=== PATIENT | female | born 1965 | race Caucasian/White ===

== ENCOUNTER 2016-06-01 05:05 | Emergency (ER) | payer OTHER ==
[2016-06-01] MEDS ORDERED: DIPH,PERTUSS,TET(ADACEL) VAC/PF 0.5 ML (Tdap) IM ONE (05:13)
[2016-06-01] MEDS ORDERED: Lidocaine 1% 10 MG/ML - 20 ML VIAL SUBCUT ONE ×2 (05:20→05:21)
[2016-06-01 05:50] VITALS: RESP 16; TEMP 98.1
--- NOTE | 2016-06-01 05:56 | PDOC ---
Hand / Wrist Injury HPI - General Chief Complaint: Laceration / Wound Stated Complaint: Right First Digit Laceration Date Seen by Provider: 06/01/16 Time Seen by Provider: 05:10 Source: POSITIVE: Patient Exam Limitations: POSITIVE: No limitations Nurse's Notes Reviewed & Considered: Yes - History of Present Illness Initial Comments: The patient is a 50-year-old female. 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 She accidentally sliced into the radial and distal aspect of the right thumb about 30 minutes [employer]. Tetanus vaccination status is not current and patient was given a Tdap vaccination in the emergency room today. No sensory or motor deficits. Wound has bled briskly. Have you received a tetanus shot in the past 10 years?: No Body Location Affected: REPORTS: Upper Extremity (R) (Thumb) Timing: REPORTS: Abrupt Duration: 1/2 hour Severity: Moderate Location at Time of Onset: REPORTS: Work Context: REPORTS: Laceration Location of Injury: REPORTS: Right, 1st Finger Quality: REPORTS: "Pain" (Localized pain at site of injury) Modifying Factors: REPORTS: Nothing Exacerbates Associated Symptoms: DENIES: Arm (R), Arm (L), Tingling Distally, Numbness Distally, Loss of Feeling, Loss of Power, Other Any Prior Injuries Related to Current Complaint?: No - Patient Home Medications Home Medications: Home Medications NK [No Home Medications Reported] 06/01/16 - Patient Allergies Allergies/Adverse Reactions: Allergies Allergy/AdvReac Type Severity Reaction Status Date / Time codeine [Codeine] Allergy HIVES Verified 06/01/16 05:12 Past Medical History - heen HEENT History: Denies History Cardiovascular History: Denies History Respiratory History: Denies History Gastrointestinal History: Other (please comment) Additional Gastrointestinal History: Hx of cholecystectomy. Genitourinary History: Denies History Endocrine History: Denies History Musculoskeletal History: Other (please comment) Additional Musculoskeletal History: Hx of shoulder repair. Neurological History: Denies History Blood Disorders: Denies History Psychiatric History: Denies History Female Reproductive History: Other (please comment) Additional Female Reproductive History: Hx of partial hysterectomy. In Past Year Been Physically Harmed or Verbally Threatened: No History of MDRO: No Tobacco Use: Current Every Day Smoker Alcohol Use: Rarely Substance Use Type: None Past Medical History Reviewed: Reviewed - No Changes ROS - Limitations ROS Limitations: No Limitations Constitution: REPORTS: Denies Symptoms Cardiovascular: REPORTS: Denies Cardiac Symptoms Respiratory: REPORTS: Denies Resp Symptoms Neurological: REPORTS: Denies Neuro Symptoms Gastrointestinal: REPORTS: Denies GI Symptoms Endocrine: REPORTS: Denies Symptoms Musculoskeletal: REPORTS: Recent Injury (As above) Genitourinary: REPORTS: Denies Symptoms Eyes: REPORTS: Denies Symptoms ENT: REPORTS: Denies Symptoms Skin: REPORTS: Other (Slice-type laceration distal aspect of the right thumb; see diagram) Lympathic: REPORTS: Denies Lympathic Symptoms Immunologic: POSITIVE: Denies Symptoms Psychiatric: POSITIVE: Denies Psych Symptoms Hand / Wrist Injury Exam - General Appearance General Appearance: POSITIVE: Alert, Cooperative, No Acute Distress. NEGATIVE: No Evidence of Trauma - Extremities Upper Extremity: POSITIVE: No Evidence of FB, Normal ROM, Soft Tissue Tenderness , Uninjured Above Wrist, See Diagram. NEGATIVE: Bony Tenderness, Swelling, Ecchymosis, Deformity, Complete Nail Injury, Partial Avulsion, Limited ROM, Limited ROM d/t Pain, Ltd. ROM d/t Funct. Def., Snuff Box Position Tender, Axial Thumb Load Pain Neurovascular / Tendon: POSITIVE: Sensation Normal, Motor Normal, No Vascular Compromise, Tendon Function Normal Skin: POSITIVE: Warm, Dry - Neck / Back Neck/Back: POSITIVE: Normal Inspection, Non-Tender, Painless ROM - Respiratory / CVS Respiratory / CVS: POSITIVE: Chest Non Tender, No Ecchymosis, Breath Sounds Normal, No Respiratory Distress, Heart Sounds Normal, Regular Rate/Rhythm Peripheral Pulses: Radial (R): 2+, Radial (L): 2+ Images - Hands Hand: 1 - Slice type injury, almost totally avulsed, laceration Procedure - Laceration/Wound Repair Site of Lac/Wound:: Right thumb Time of Suture Placement:: 05:25 Wound Length (cm): 3 Wound's Depth, Shape: Into subcutaneous tissue, Flap Distal CMS: Yes Skin Prep: Betadine Prep, Sterile Field Maintained, Sterile Drapes Applied, Sterile Dressing Applied Local Anesthesia Used - Indicate Amt Used in Comment: Lidocaine 1%: Yes Irrigated w/ Saline (mL): 10 Wound Explored: No foreign body removed Wound Debrided: Minimal Wound Repaired With: Sutures single layer Suture Size/Type: 5:0 Number of Sutures: 5 Layer Closure?: No Drain Placement: No Sterile Dressing Applied?: Yes Splint Applied?: No Sling Applied?: No Procedure Note:: After digital block with 1% lidocaine, wound was sterilely cleansed with normal saline and Betadine. Wound was then closed with 5-0 nylon simple and are up-to- date sutures. 5 sutures placed. Patient tolerated procedure well. Hand / Wrist Injury Progress - Patient's Progress Pain Medication Addressed: POSITIVE: Yes (recommended Tylenol or Advil) School/Work Release Addressed: POSITIVE: Yes (may return to work) Re-Examine Time: 05:45 Re-Examine Comment: Primary closure complete Status: POSITIVE: Improved, Re-Examined - Consult Consult (If Yes, Name of Consulting MD & Time Called): No Counseled: POSITIVE: Patient, RE: DX, RE: Need for F/U Patient Care Time - Estimated PCT Patient Care Time (In Minutes): 30 Vital Signs - Recent Vital Signs Vital Signs: Vital Signs (Last 8 hours) Temp Pulse Resp BP Pulse Ox 06/01/16 05:05 98.1 F 94 16 132/97 96 - VS Reviewed Vital Signs Reviewed: Yes Discharge Clinical Impression: Laceration - injury Discharge Disposition: Discharged to Home Condition: Stable Patient Instructions Given at Discharge: Laceration (ED) Additional Instructions: Keep sutures clean. Elevate hand. You can return to work. Return in about 10 or 11 days for suture removal; return sooner at first sign of infection or if condition worsens in any way. Because you almost completely sliced off a portion of the tip of your thumb, I cannot completely guarantee that the sliced off portion will remain viable, although I think most likely a will heal fine. Advil or Tylenol for discomfort. Follow Up With: NONE,NONE [Primary Care Provider] - (Instructions as above. Return to the emergency room in 10 or 11 days for suture removal. Return sooner anytime if condition worsens in any way.)
== END 2016-06-01 06:11 | disposition home or self-care (01) ==
LOC: EDBD → ER 05:05 → MERGE 05:05 → ER 06:11
DX: S61.011A Laceration without foreign body of right thumb without damage to nail, initial encounter (principal); W45.8XXA Other foreign body or object entering through skin, initial encounter; Y99.0 Civilian activity done for income or pay
CPT/HCPCS: 12002; 90471; 99282; J2001